=== PATIENT | male | born 1975 | race Caucasian/White ===

== ENCOUNTER 2020-10-21 15:45 | Inpatient (IN) | payer MEDICARE, OTHER ==
[~2020-10-21] VITALS: Ht 175.3 cm; Wt 88.5 kg
--- NOTE | 2020-10-21 16:10 | NUR ---
frm snf c/o chest pain since this morning. aspirin, nitro given pt bg 202 lighter captain. dialysis done this morning. Patient a/ox4, breathing even and unlabored, no sob noted. Needs attended. KAttached to the cardiac catheterization technician.
[2020-10-21 16:51] LABS: BASOPHILS # (AUTO) 0.1 /CMM (0.0-0.2); BASOPHILS % (AUTO) 1.2 % (0.0-2.0); EOSINOPHILS % (AUTO) 7.8 % (0.0-6.0); HEMATOCRIT 28 % (39-51); HEMOGLOBIN 9.2 g/dL (13.5-17.5); LYMPHOCYTES # (AUTO) 0.8 /CMM (0.8-4.8); LYMPHOCYTES % (AUTO) 20.1 % (20.0-44.0); MEAN CORPUSCULAR HGB CONC 33 g/dl (31.0-36.0); MEAN CORPUSCULAR VOLUME 98 fL (80-96); MONOCYTES # (AUTO) 0.5 /CMM (0.1-1.30); MONOCYTES % (AUTO) 13.3 % (2.0-12.0); NEUTROPHILS # (AUTO) 2.4 /CMM (1.8-8.9); NEUTROPHILS % (AUTO) 57.6 % (43.0-81.0); PLATELET COUNT (AUTO) 186 /CMM (150-450); RED BLOOD CELL COUNT(AUTO) 2.87 MIL/uL (4.5-6.0); WHITE BLOOD COUNT (AUTO) 4.1 K/uL (4.3-11.0)
[2020-10-21 17:02] LABS: CALCIUM, SERUM 7.4 mg/dL (8.5-10.1); CREATININE 6.3 mg/dL (0.6-1.3); POTASSIUM 4.2 mmol/L (3.5-5.1)
[2020-10-21 17:09] LABS: ALBUMIN 2.3 g/dL (3.4-5.0); BILIRUBIN,DIRECT 0.1 mg/dL (0.0-0.2); BILIRUBIN,TOTAL 0.5 mg/dL (0.2-1.0); TOTAL PROTEIN, SERUM 7.1 g/dL (6.4-8.2)
--- NOTE | 2020-10-21 17:16 | NUR ---
PATIENT STS HE'S OK TO TAKE MORPHINE.
[2020-10-21] MEDS ORDERED: MORPHINE SULFATE INJ 2 MG/ML DISP.SYRIN ONE ×2 (17:17→20:36)
[2020-10-21] MEDS ORDERED: MORPHINE SULFATE INJ 2 MG/ML DISP.SYRIN IV ONE (17:30)
[2020-10-21] MEDS ORDERED: PANT40TA2 PO (18:15)
[2020-10-21] MEDS ORDERED: CLOP75TA15 PO (18:15)
[2020-10-21] MEDS ORDERED: CLON0.3T PO (18:15)
[2020-10-21] MEDS ORDERED: INSU100V7 SQ (18:15)
[2020-10-21] MEDS ORDERED: HYDR100T27 PO (18:15)
--- NOTE | 2020-10-21 18:27 | NUR ---
covid swab sent to lab.
[2020-10-21] MEDS ORDERED: MAGNESIUM HYDROXIDE 30 ML UDC PO PRN (20:00)
[2020-10-21] MEDS ORDERED: MAG HYDROX/AL HYDROX/SIMETH 30 ML UDC PO PRN (20:00)
[2020-10-21] MEDS ORDERED: ONDANSETRON HCL/PF 4 MG/2 ML VIAL IVP PRN (20:00)
[2020-10-21] MEDS ORDERED: HYDROCODONE/APAP 5/325MG TABLET PO PRN (20:00)
[2020-10-21] MEDS ORDERED: INSULIN REGULAR, HUMAN 100 UNIT/ML 3 ML VIAL SQ PRN (20:00)
[2020-10-21] MEDS ORDERED: Z GUARD REMEDY 2 OZ OINT TP PRN (20:00)
[2020-10-21] MEDS ORDERED: ACETAMINOPHEN 325 MG TABLET PO PRN (20:00)
[2020-10-21] MEDS ORDERED: ZOLPIDEM TARTRATE 5 MG TABLET PO PRN (20:00)
[2020-10-21] MEDS ORDERED: DEXTROSE 50%-WATER 50 ML DISP.SYRIN IV PRN (20:00)
[2020-10-21] MEDS: MORPHINE SULFATE INJ 2 MG/ML DISP.SYRIN IV PRN (20:41)
[2020-10-21] MEDS: NITROGLYCERIN 30 GM TUBE TD SCH ×2 (21:00→21:49)
--- NOTE | 2020-10-21 21:03 | NUR ---
CALL FROM LAB. RAPID COVID NEGATIVE.
--- NOTE | 2020-10-21 22:56 | NUR ---
tele [phone]
[2020-10-21] MEDS: BLOOD SUGAR DIAGNOSTIC 1 EACH STRIP VI SCH (23:18)
--- NOTE | 2020-10-21 23:19 | NUR ---
REPORT GIVEN TO DAVIN JOEL FOR [facility]AREL[facility] PT WILL BE TRANSPORTED TO 1ST FLOOR
--- NOTE | 2020-10-21 23:30 | NUR ---
FAMILY MEDICINE CHAIR NOTES PATIENT ARRIVED ON FLOOR AT 2330. PT IS ALERT AND ORIENTED X 4. BREATHING EVEN AND UNLABORED ON ROOM AIR. SHOWS NO SIGNS OF ACUTE RESPIRATORY DISTRESS. NO ACUTE PAIN. TELE MONITOR SR. IV ON LAC 18G ITS CLEAN DRY AND INTACT. SHOWS NO SIGNS OF INFILTRATION, NO REDNESS. R UPPER CHEST IJ PERMA CATH WITH DRESSING INTACT. PT STATE HAD HD TODAY WITH 2L OUT. BELONGINGS CHECKLIST COMPLETED, SKIN ASSESSMENT COMPLETED. ORIENTED TO ROOM AND STAFF. SAFETY PRECAUTIONS IN PLACE. BED IN LOWEST POSITION, LOCKED, AND CALL LIGHT KEPT WITHIN REACH.
[2020-10-21] MEDS: INSULIN GLARGINE, 100 UNIT/ML CARTRIDGE SQ SCH (23:35)
--- NOTE | 2020-10-21 23:35 | NUR ---
COMMERCIAL REAL ESTATE SALES MANAGER NOTES WHILE DOING SKIN ASSESSMENT PT PULLED TOE NAIL OFF L FOOT. APPLIED PRESSURE TO STOP BLEEDING AND WRAPPED WITH GAUZE. PICTURE TAKEN, AWAITING WOUND CARE CONSULT.
[2020-10-22 00:14] VITALS: BP 179/55
[2020-10-22] MEDS: MORPHINE SULFATE INJ 2 MG/ML DISP.SYRIN IV PRN ×4 (00:48→22:12)
[2020-10-22] MEDS ORDERED: CLONIDINE HCL 0.1 MG TABLET PO PRN (01:00)
[2020-10-22] MEDS: NITROGLYCERIN 30 GM TUBE TD SCH (04:08)
--- NOTE | 2020-10-22 05:15 | NUR ---
CORPORATE TAX PREPARER NOTES PATIENT REFUSING BLOOD DRAW. EDUCATED RISK AND BENEFITS FOR BLOOD DRAW.
--- NOTE | 2020-10-22 06:34 | NUR ---
DOMESTIC HELPER NOTES PT IS IN BED, ASLEEP, ALERT AND ORIENTED X 4. BREATHING EVEN AND UNLABORED ON ROOM AIR. SHOWS NO SIGNS OF ACUTE RESPIRATORY DISTRESS. NO ACUTE PAIN. TELE MONITOR SR. IV ON LAC 18G ITS CLEAN DRY AND INTACT. SHOWS NO SIGNS OF INFILTRATION, NO REDNESS. R UPPER CHEST IJ PERMA CATH WITH DRESSING INTACT. ALL DUE MEDICATIONS GIVEN. ALL NEEDS ATTENDED TO. SAFETY PRECAUTIONS IN PLACE. BED IN LOWEST POSITION, LOCKED, AND CALL LIGHT KEPT WITHIN REACH. WILL ENDORSE TO ONCOMING NURSE.
[2020-10-22] MEDS: BLOOD SUGAR DIAGNOSTIC 1 EACH STRIP VI SCH ×4 (07:30→21:19)
--- NOTE | 2020-10-22 07:45 | NUR ---
RN TELE1 PPATIENT IN BED, NO S/S OF DISTRESS, A/O X4, ON ROOM AIR, O2 SAT 97%, TELE MONITOR IN PLACE, SINUS RHYTHM, BELOW THE KNEE AMPUTATION, CLEAN AND DRY NO S/S OF IRRITATION, CONSISTENT CARB DIET, L AC 20G IV, R UPPER CHEST JJ PERMA CATH, IV CLEAN DRY INTACT, PERMA CATH IN PLACE CLEAN DRY, OLD SHUNT ON L UA, ABLE TO DO BLOOD PRESSURE ON L FOREARM, BED IN LOWEST LOCKED POSITION, CALL LIGHT WITHIN REACH, SAFETY MEASURES IN PLACE, WILL CONTINUE TO MONITOR.
[2020-10-22 08:00] VITALS: BP 139/72
--- NOTE | 2020-10-22 08:37 | NUR ---
WOUND CARE CONSULT: REVIEWED CHART,NURSING DOCUMENTATION AND PHOTO WHICH INDICATES LEFT TOENAIL AVULSION, PRESENT ON ADMISSION. RECOMMEND DPM CONSULT. DR RODRIGUEZ NOTIFIED OF CONSULT REQUEST. CURRENT EMERY SCORE IS 20. MD IN AGREEMENT WITH PLAN OF CARE.
--- NOTE | 2020-10-22 08:42 | NUR ---
RN TELE1 SPOKE TO LYUDMILA IN RADIOLOGY, ASKED IF IT IS OK TO GO FORWARD WITH CT ANGIOGRAM OF THE HEART SINCE CREATININE IS 6.3 AND PATIENT IS ON DIALYSIS. ASKED DR CARSON IF HE IS OK WITH THE NEXT DIALYSIS TO BE TOMORROW. HE SAID TO GO AHEAD WITH THE CT AND AND THAT DR KELLEY WILL SEE THE PATIENT CASE. WILL FOLLOW UP ACCORDINGLY.
[2020-10-22] MEDS ORDERED: hydrALAZINE HCL 50 MG TABLET PO SCH (09:00)
[2020-10-22] MEDS ORDERED: CLONIDINE HCL 0.1 MG TABLET PO SCH (09:00)
[2020-10-22] MEDS: hydrALAZINE HCL 50 MG TABLET PO SCH ×5 (09:00→16:55)
[2020-10-22 10:00] VITALS: BP 139/72
--- NOTE | 2020-10-22 10:09 | NUR ---
RN TELE1 YAMILETH APPROVED HAVING THE CT ANGIOGRAM TODAY AND DIALYSIS TOMORROW, CONTACTED DIALYSIS NURSE MAYI AND HE SCHEDULED HIS DIALYSIS FOR START OF SHIFT TOMOROW MORNING, CONTACTED DR RAHMAN AND HE APPROVED THE PLAN, RECEIEVED PATIENT CONSENT, CALLED RADIOLOGY A NOTIFIED PATIENT HAS 20G IV IN THE L AC AND CAN NOT HAVE IVs IN THE RIGHT ARM, RADIOLOGY IS ON THE WAY TO TAKE PATIENT FOR THE SCAN.
[2020-10-22] MEDS: INSULIN GLARGINE, 100 UNIT/ML CARTRIDGE SQ SCH ×2 (10:23→21:20)
--- NOTE | 2020-10-22 10:23 | NUR ---
RN TELE1 HOLDING PO MEDICATION UNTIL PATIENT RETURNS FROM RADIOLOGY FOR THE CT ANGIOGRAM BECAUSE PATIENT HAS 3 MEDICATIONS THAT CAN DECREASE BLOOD PRESSURE AND DO NOT WANT HIM TO TANK DURING THE CT ANGIOGRAM.
--- NOTE | 2020-10-22 10:45 | NUR ---
RN TELE1 PATIENT TAKEN BY RADIOLOGY TO GET CT DONE, TAKEN IN WHEEL CHAIR, TELE MONITOR REMOVED, STABLE VITALS PRIOR TO EXAM, DISCUSSED HOW LONG IT SHOULD TAKE AND PATIENT VOICED CONCERN ABOUT PAIN OF LAYING ON HIS BACK FOR PROLONGED PERIOD OF TIME SO GAVE MORPHINE.
[2020-10-22] MEDS ORDERED: NITROGLYCERIN 0.4 MG/TAB BOTTLE ONE (11:07)
[2020-10-22] MEDS ORDERED: METOPROLOL TARTRATE INJ 5 MG/5 ML AMPUL ONE ×2 (11:07→11:33)
[2020-10-22] MEDS: METOPROLOL TARTRATE INJ 5 MG/5 ML AMPUL IVP PRN ×9 (11:11→11:56)
[2020-10-22] MEDS ORDERED: IV NS 0.9% 500 ML IV PRN (11:30)
[2020-10-22] MEDS ORDERED: NITROGLYCERIN 4.9 GM SPRAY SL ONE (11:30)
[2020-10-22 12:00] VITALS: BP 183/62
--- NOTE | 2020-10-22 12:00 | NUR ---
consent signed for CTA heart; VSS; denies CP , SOB, Given total of Metoprolol 5mg/IVP x 10 doses and NTG SL per protocol. tolerated procedure; VSS; report given to floor RN; transferred back to floor per wheelchair
[2020-10-22] MEDS: ISOSORBIDE DINITRATE (20MG) 20 MG TABLET PO SCH ×3 (12:38→17:00)
[2020-10-22] MEDS: VALSARTAN 80 MG TABLET PO SCH (12:39)
[2020-10-22] MEDS: CARVEDILOL 12.5 MG TABLET PO SCH ×2 (12:39→20:33)
[2020-10-22] MEDS: PANTOPRAZOLE 40 MG TABLET.DR PO SCH (12:40)
[2020-10-22] MEDS: CLOPIDOGREL BISULFATE 75 MG TABLET PO SCH (12:40)
--- NOTE | 2020-10-22 12:45 | NUR ---
PATIENT RETURNED FROM RADIOLOGY, VITALS ARE STABLE EXCEPT BP IS 183/62, PROVIDING MISSED MORNING BLOOD PRESSURE MEDICATION.
[2020-10-22] MEDS: *INSULIN REGULAR(HUMULIN R)HUM 100 UNIT/ML VIAL SQ PRN ×2 (13:13→21:20)
[2020-10-22] MEDS: HEPARIN SODIUM, PORCINE 5000 UNITS/1 ML VIAL SQ SCH ×4 (13:29→21:18)
[2020-10-22 16:00] VITALS: BP 155/76
[2020-10-22] MEDS: CLOTRIMAZOLE 1% 15 GM TUBE TP SCH (17:09)
--- NOTE | 2020-10-22 18:26 | NUR ---
PCR came back with indeterminate and patient refuses to do another test of PCR . Dr Song was notified and stated that isolate and treat like positive and carried out
--- NOTE | 2020-10-22 18:29 | NUR ---
RN TELE1 PATIENT IN BED, NO S/S OF DISTRESS, A/O X4, ON ROOM AIR, O2 SAT 97%, TELE MONITOR IN PLACE, SINUS RHYTHM, BELOW THE KNEE AMPUTATION, CLEAN AND DRY NO S/S OF IRRITATION, L FOOT TOE NAIL MISSING WOUND CARE PROVIDED ORDERED, CONSISTENT CARB DIET, L AC 20G IV, R UPPER CHEST JJ PERMA CATH, IV CLEAN DRY INTACT FLUSHES WELL, PERMA CATH IN PLACE CLEAN DRY, OLD SHUNT ON L UA, ABLE TO DO BLOOD PRESSURE ON L FOREARM, PCR INDETERMINATE BUT PATIENT REFUSED TO REDO THE TEST, NOTIFIED DR CARSON, BED IN LOWEST LOCKED POSITION, CALL LIGHT WITHIN REACH, SAFETY MEASURES IN PLACE.
[2020-10-22 18:44] LABS: CALCIUM, SERUM 7.6 mg/dL (8.5-10.1); PHOSPHORUS 3.7 mg/dL (2.5-4.9)
[2020-10-22 18:54] LABS: BASOPHILS # (AUTO) 0.1 /CMM (0.0-0.2); EOSINOPHILS % (AUTO) 7.3 % (0.0-6.0); HEMATOCRIT 30 % (39-51); HEMOGLOBIN 9.6 g/dL (13.5-17.5); LYMPHOCYTES % (AUTO) 18.5 % (20.0-44.0); MEAN CORPUSCULAR HGB CONC 33 g/dl (31.0-36.0); MEAN CORPUSCULAR VOLUME 97 fL (80-96); MONOCYTES # (AUTO) 0.7 /CMM (0.1-1.30); MONOCYTES % (AUTO) 12.5 % (2.0-12.0); NEUTROPHILS # (AUTO) 3.3 /CMM (1.8-8.9); NEUTROPHILS % (AUTO) 60.7 % (43.0-81.0); PLATELET COUNT (AUTO) 229 /CMM (150-450); RED BLOOD CELL COUNT(AUTO) 3.05 MIL/uL (4.5-6.0); WHITE BLOOD COUNT (AUTO) 5.4 K/uL (4.3-11.0)
[2020-10-22 19:15] LABS: THYROID STIMULATING HORMONE 7.803 uIU/mL (0.358-3.74)
[2020-10-22 19:19] LABS: CREATININE 8.2 mg/dL (0.6-1.3)
--- NOTE | 2020-10-22 19:20 | NUR ---
RN OPENING NOTES: RECEIVED PT A/OX4 IN BED RESTING COMFORTABLY. PATIENT IN NO S/SX OF ACUTE DISTRESS AT THIS TIME. NO SOB NOTED. PATIENT'S BREATHING IS EVEN AND UNLABORED. PATIENT IS ON RA; TOLERATING WELL, SATING @97% AT THE TIME OF RECEIVED. PATIENT ON TELE MONITORING READING SINUS RHYTHM HR IS @70s. NOTED IV SITE ON L AC #20; PATENT, INTACT AND FLUSHING WELL; NO S/S OF INFECTION OR INFILTRATION. PT ALSO HAS A R U CHES IJ PERMA CATH, SECURED AND INTACT.PATIENT ON CONSISTENT CARB DIET AT THIS TIME. NO CONSTANT PAIN AT THIS TIME. SAFETY MEASURES HAVE BEEN PROVIDED AND IMPLEMENTED. PATIENT BED ALARM IS ON. HEAD OF BED ELEVATED. BED IS LOCKED, IN LOWEST POSITION AND SIDE RAILS UP. CALL LIGHT WITHIN REACH OF THE PATIENT. APPLICABLE ISOLATION PRECAUTIONS IN PLACE. WILL CONTINUE TO MONITOR AND REASSESS FOR ANY CHANGES AND WILL CARRY OUT ANY ONGOING AND ACTIVE MD ORDER.
--- NOTE | 2020-10-22 19:23 | NUR ---
RN NOTES RECEIVED CALL FROM LAB SPOKE WITH TAHMINA SHE ADVISED ABOUT CRITICAL LAB ; CREATINE LEVEL AT 8.2. CENTER MACHINE SET UP OPERATOR MADE AWARE. WILL INFORM SHAY STARR. COMMUNICATED WITH SHAY STARR AND ADVISE ABOUT CRITICAL LAB ; CREATINE LEVEL AT 8.2. MD ACKNOWLEDGED.
[2020-10-22 20:00] VITALS: BP 149/68
--- NOTE | 2020-10-22 21:21 | NUR ---
RN NOTES PATIENT REFUSED MEDICATIONS HEPARIN AND REGULAR INSULIN. UNABLE TO RETURN MED ( HEPARIN) DISCARDED ACCORDINGLY. DIRECTOR PATIENT ACCOUNTING MADE AWARE.
--- NOTE | 2020-10-22 23:00 | NUR ---
RN NOTES PATIENT REMAINS IN NO ACUTE RESPIRATORY DISTRESS AT THIS TIME, NO CHANGES TO CONDITION/STATUS. BENDER HELPER WELL AWARE. WILL CONTINUE TO MONITOR AND REASSESS FOR ANY CHANGES THROUGHOUT THE SHIFT
[2020-10-23] VITALS: BP 144/72
--- NOTE | 2020-10-23 03:30 | NUR ---
RN NOTES NO CHANGE IN PATIENT CONDITION AT THIS TIME PATIENT VITALS STABLE, NO SIGNS OF ACUTE RESPIRATORY DISTRESS. YOGHURT MAKER MADE AWARE. WILL CONTINUE TO MONITOR AND REASSESS FOR ANY CHANGES THROUGHOUT THE SHIFT.
[2020-10-23 04:00] VITALS: BP 134/97
[2020-10-23] MEDS: MORPHINE SULFATE INJ 2 MG/ML DISP.SYRIN IV PRN ×3 (04:34→12:38)
--- NOTE | 2020-10-23 06:50 | NUR ---
RN CLOSING NOTE: PATIENT REMAINS IN ROOM IN NO SIGNS OF RESPIRATORY DISTRESS. SAFETY MEASURES IMPLEMENTED, BED IN LOWEST POSITION, LOCKED, SIDE RAILS UP, CALL LIGHT WITHIN REACH. ALL NEEDS AND ORDERS ADDRESSED DURING THE SHIFT. IV ACCESS MAINTAINED INTACT, SECURED AND FLUSHING WELL. ALL DUE MEDS GIVEN ORDERED & SCHEDULED ; PATIENT TOLERATED WELL. PATIENT KEPT CLEAN AND COMFORTABLE WITHIN THE SHIFT. PATIENT ENDORSED TO INCOMING SHIFT RN WITH STABLE VITAL SIGN AND FOR CONTINUITY OF CARE.
--- NOTE | 2020-10-23 07:30 | NUR ---
TELE/RN OPENING NOTE Patient awake in bed, A&O x 4. Denies any pain/discomfort at this time. Breathing even and non-labored on RA, no SOB noted. No respiratory or cardiac distress noted. On tele monitor, reading SR 79. IV access noted on LAC #18g, patent and intact, and flushing well. R IJ permacath in place. Bed locked to its lowest position, side rails x 2 up, call light in hand. Will continue with current medical management.
[2020-10-23 08:00] VITALS: BP_SYST 163; BP_SYST 183; BP_DIAS 75; BP_DIAS 87
[2020-10-23] MEDS: BLOOD SUGAR DIAGNOSTIC 1 EACH STRIP VI SCH ×2 (08:36→12:12)
--- NOTE | 2020-10-23 08:37 | NUR ---
TELE/RN NOTE Patient complaining of 8/10 dull ache generalized body pain, requests for morphine 2mg. Administered morphine PRN following MD order.
[2020-10-23] MEDS: CLOPIDOGREL BISULFATE 75 MG TABLET PO SCH (08:38)
[2020-10-23] MEDS: hydrALAZINE HCL 50 MG TABLET PO SCH ×2 (08:38→12:38)
[2020-10-23] MEDS: PANTOPRAZOLE 40 MG TABLET.DR PO SCH (08:38)
[2020-10-23] MEDS: VALSARTAN 80 MG TABLET PO SCH ×2 (08:39→08:55)
[2020-10-23] MEDS: ISOSORBIDE DINITRATE (20MG) 20 MG TABLET PO SCH (08:39)
[2020-10-23] MEDS: INSULIN GLARGINE, 100 UNIT/ML CARTRIDGE SQ SCH ×2 (08:40→08:55)
[2020-10-23] MEDS: CARVEDILOL 12.5 MG TABLET PO SCH (08:40)
[2020-10-23] MEDS: CLOTRIMAZOLE 1% 15 GM TUBE TP SCH (08:41)
--- NOTE | 2020-10-23 09:00 | NUR ---
TELE/RN NOTE Patient blood sugar noted at 92, non-administered insulin lantus, refused by patient. Also, non-administered valsartan, per patient "I do not take that."
[2020-10-23] MEDS ORDERED: diphenhydrAMINE HCL 50 MG/ML VIAL IV PRN (10:00)
--- NOTE | 2020-10-23 10:00 | NUR ---
TELE/RN NOTE Patient currently on dialysis, appears comfortable and well. No acute distress noted.
[2020-10-23 12:00] VITALS: BP 163/75
--- NOTE | 2020-10-23 12:00 | NUR ---
TELE/RN NOTE Patient finished HD, 2L out. No s/s of acute distress noted, VSS, no SOB noted.
[2020-10-23 12:38] VITALS: BP 173/75
--- NOTE | 2020-10-23 15:00 | NUR ---
TELE/MECHANICAL ADJUSTER NOTE Patient remained stable throughout shift, A&O x 4. All needs met and attended to. Patient picked up at 1500 by ambulance. Denies any pain/discomfort at this time. Breathing even and non-labored on RA, no SOB noted. No respiratory or cardiac distress noted. IV access removed on LAC #18g with catheter intact, no s/s of infiltration, bleeding, or indection on the site. R IJ permacath in place. Photo of left toe avulsion taken, placed on chart. Educated patient and Jluis RN (from [facility]) regarding discharge instructions, answered all their questions to their satisfaction, both verbalized understanding. Patient left facility safely along with hospital documents and belongings.
== END 2020-10-23 14:59 | DRG 205 ==
LOC: ER 16:47 → TRANSITION 20:25 → TELE1 23:13
PROVIDERS: ADMIT Internal Medicine; ATTEND Internal Medicine
PROC: 5A1D70Z Performance of Urinary Filtration, Intermittent, Less than 6 Hours Per Day (ICD-10-PCS; principal; 2020-10-23)
DX: M94.0 Chondrocostal junction syndrome [Tietze] (principal); N18.6 End stage renal disease; E43 Unspecified severe protein-calorie malnutrition; I13.11 Hypertensive heart and chronic kidney disease without heart failure, with stage 5 chronic kidney disease, or end stage renal disease; J98.11 Atelectasis; Z99.2 Dependence on renal dialysis; E11.22 Type 2 diabetes mellitus with diabetic chronic kidney disease; Z95.1 Presence of aortocoronary bypass graft; E11.42 Type 2 diabetes mellitus with diabetic polyneuropathy; E11.621 Type 2 diabetes mellitus with foot ulcer; E11.65 Type 2 diabetes mellitus with hyperglycemia; D63.8 Anemia in other chronic diseases classified elsewhere; L97.529 Non-pressure chronic ulcer of other part of left foot with unspecified severity; Z89.511 Acquired absence of right leg below knee; Z98.61 Coronary angioplasty status; I25.10 Atherosclerotic heart disease of native coronary artery without angina pectoris; Z83.3 Family history of diabetes mellitus; Z88.6 Allergy status to analgesic agent; Z88.5 Allergy status to narcotic agent; Z88.8 Allergy status to other drugs, medicaments and biological substances; I27.20 Pulmonary hypertension, unspecified; B35.3 Tinea pedis; B35.1 Tinea unguium
CPT/HCPCS: 36415; 71045-TC; 75574; 80048-TC; 80076-TC; 82962-TC; 83540-TC; 83605-TC; 83735-TC; 84100-TC; 84439-TC; 84443-TC; 84484-TC; 85025-TC; 87081-TC; 90935-TC; G0378; J1200; J1644; J1815; J2270; J3490; J7040; U0003